=== PATIENT | female | born 1955 | race Caucasian/White ===

== ENCOUNTER → 2017-03-31 | Outpatient (CLI) | payer MEDICAID ==
--- NOTE | 2017-04-06 17:07 | WOMENS IMAGING REPORT ---
EXAM DESCRIPTION: BILAT SCREENING MAMMO W/CAD COMPLETED DATE/TIME: 03/31/2017 2:46 pm REASON FOR STUDY: ROUTINE SCREENING; Z12.31 Z12.31 ENCNTR SCREEN MAMMOGRAM FOR MALIGNANT NEOPLASM O F ALEXANDRA COMPARISON: 2014 TECHNIQUE: Standard craniocaudal and mediolateral oblique views of each breast recorded using digita l acquisition. LIMITATIONS: None. FINDINGS: Findings present which are benign by mammographic criteria. No suspicious masses, calcifi cations or architectural distortion. Pertinent benign findings: Stable calcifications left breast. Stable nodule deep central right breas t. Read with the assistance of CAD. .[facility] - R2 Cenova Version 1.3 .[facility] - R2 Cenova Version 1.3 .[facility] - R2 Cenova Version 2.4 .[facility] [place] - R2 Cenova Version 2.4 .[facility] - R2 Integrated Program Teacher Version 9.2 Benign mammographic findings may include one or more of the following: Smooth masses, popcorn/rim/co arse calcifications, asymmetries, post-procedure changes, and lesions with long-standing stability. IMPRESSION: BENIGN MAMMOGRAPHIC FINDINGS. BIRADS 2 BREAST DENSITY: b. There are scattered areas of fibroglandular density. BIRAD: 2 BENIGN FINDING(S) RECOMMENDATION: ROUTINE SCREENING Please consider bilateral screening tomosynthesis in March 2018 COMMENT: The patient has been notified of the results by letter per SA requirements. Additional no tification policies are in place for contacting patient with suspicious or incomplete findings. Quality ID #[id number]: The [employer] recommends an annual screening mammogram for women aged 40 years or over. This facility utilizes a reminder system to ensure that all patients receive reminder letters, and/or direct phone calls for appointments. This includes reminders for routine scr eening mammograms, diagnostic mammograms, or other Breast Imaging Interventions when appropriate. Th is patient will be placed in the appropriate reminder system. The [employer] ([employer]) has developed recommendations for screening MRI of the breast s in certain patient populations, to be used in conjunction with mammography. Breast MRI surveillanc e may be appropriate for women with more than 20% lifetime risk of developing breast cancer as deter mined by genetic testing, significant family history of the disease, or history of mantle radiation f or Hodgkins Disease. [employer]CR Practice Guidelines 2008. TECHNICAL DOCUMENTATION: FINDING NUMBER: (1) ASSESSMENT: (1) JOB ID: [id number] [employer]- All Rights Reserved
== END ==
LOC: WI 14:09
PROVIDERS: ATTEND Nurse Practitioner Family
DX: Z12.31 Encounter for screening mammogram for malignant neoplasm of breast (principal)
CPT/HCPCS: 77067; G0202

== ENCOUNTER 2017-10-29 22:33 | Observation (INO) | payer MEDICAID ==
--- NOTE | 2017-10-29 23:22 | ER Document Report ---
ED General - General Chief Complaint: Chest Pain Stated Complaint: CHEST PAIN Time Seen by Provider: 10/29/17 23:22 Notes: Patient is a 62-year-old female who presents with complaint of substernal chest pain and some difficulty breathing. It has been ongoing since earlier today. She says she was hoping it would go away but never went away and therefore she is come to the ER. She does not have any radiation of the pain. She denies history of coronary disease. She said that she was told she had a small mild heart attack 5 years ago but then her heart cath was negative. She said her last heart cath was 2 years ago and was also negative. She does have history of COPD. She does still smoke. She has no other complaints at this time. Recent fevers. No leg pain or leg swelling. No history of DVT or PE. TRAVEL OUTSIDE OF THE [place] IN LAST 30 DAYS: No - Related Data Allergies/Adverse Reactions: clarithromycin [From Biaxin] Allergy (Verified 08/24/15 22:29) cyclobenzaprine HCl [From Flexeril] Allergy (Verified 08/24/15 22:29) phenytoin sodium [From Dilantin] Allergy (Verified 08/24/15 22:29) levofloxacin [From Levaquin] Adverse Reaction (Verified 09/13/15 17:56) propoxyphene [From Darvocet-N] Adverse Reaction (Verified 05/17/16 13:09) Past Medical History - Social History Smoking Status: Current Every Day Smoker Frequency of alcohol use: None Drug Abuse: None Family History: Reviewed & Not Pertinent - Past Medical History Cardiac Medical History: Reports: Hx Congestive Heart Failure, Hx Hypercholesterolemia, Hx Hypertension Pulmonary Medical History: Reports: Hx COPD Musculoskeltal Medical History: Reports Hx Arthritis - RA Past Surgical History: Reports: Other - Remote cerebral hemangioma - Immunizations Hx Diphtheria, Pertussis, Tetanus Vaccination: Yes Review of Systems - Review of Systems Notes: My Normal Review Basic REVIEW OF SYSTEMS: CONSTITUTIONAL : Denies fever, chills, or sweats. Denies recent illness. EENT: Denies eye, ear, throat, or mouth pain or symptoms. Denies nasal or sinus congestion. CARDIOVASCULAR: Has chest pain. RESPIRATORY: Difficulty breathing GASTROINTESTINAL: Denies abdominal pain. Denies nausea, vomiting, or diarrhea. GENITOURINARY: Denies difficulty urinating, painful urination, MUSCULOSKELETAL: Denies neck or back pain or joint pain or swelling. SKIN: Denies rash or skin lesions. NEUROLOGICAL: Denies altered mental status or loss of consciousness. Denies headache. Denies weakness or paralysis or loss of use of either side. Denies problems with gait or speech. Denies sensory or motor loss. ALL OTHER SYSTEMS REVIEWED AND NEGATIVE. Physical Exam - Vital signs Vitals: Temp Pulse Resp BP Pulse Ox 98.4 F 116 H 20 217/103 H 90 L 10/29/17 22:55 10/29/17 22:55 10/29/17 22:55 10/29/17 22:55 10/29/17 22:55 - Notes Notes: General Appearance: Well nourished, alert, cooperative, mild acute distress, no obvious discomfort. Patient's O2 saturation 89% while at rest in the room. Vitals: reviewed, See vital signs table. Head: no swelling or tenderness to the head Eyes: PERRL, EOMI, Conjuctiva clear Mouth: No decreasd moisture Neck: Supple, no neck tenderness, No thyromegaly Lungs: No wheezing, diffuse rales, No rhonci, mild accessory muscle use, good air exchange bilaterally. Heart: Tachycardic rate, Regular rythm, No murmur, no rub Abdomen: Normal BS, soft, No rigidity, No abdominal tenderness, No guarding, no rebound, no abdominal masses, no organomegaly Extremities: strength 5/5 in all extremities, good pulses in all extremities, no swelling or tenderness in the extremities, no edema. Skin: warm, dry, appropriate color, no rash Neuro: speech clear, oriented x 3, normal affect, responds appropriately to questions. Course - Re-evaluation Re-evalutation: 10/29/17 23:22 EKG is reviewed and interpreted by me. EKG shows sinus tachycardia with a rate of [address] segment elevation or depression. No ischemic T-wave inversions. WV interval, QRS duration, QTc intervals are within normal range. Old EKG for comparison is from May 17, 2016. 10/30/17 00:49 Patient continues to have some venous rales in the base of the right long and about midway up the left lung. She does not have any wheezing or rhonchi. Her chest pain is resolved with nitro. Her blood pressure is improving after the nitro. She looks and feels improved. She still requiring some supplemental oxygen. When her oxygen comes off she is about 88-89% on room air at rest. Therefore kept on 2 L nasal cannula. Avoid Lasix. Her BNP is negative. Suspect this could be some form of hypertensive urgency or diastolic heart failure. Her initial troponin is negative however this is 100% rule out coronary disease. Because of the above mentioned reasons I feel the patient is appropriate for admission. I do not suspect PE at this time being the patient has no leg pain or leg swelling in her lungs have very consistent rails to help explain why she is having hypoxia. Chest pain is not at all pruritic and was improved with nitro. I spoke with the hospitalist, Dr. Siddiqui, who agrees to admit the patient. Dictation of this chart was performed using voice recognition software; therefore, there may be some unintended grammatical errors. - Vital Signs Vital signs: Temp Pulse Resp BP Pulse Ox 98.4 F 116 H 20 177/100 H 92 10/29/17 22:55 10/29/17 22:55 10/30/17 00:19 10/30/17 00:19 10/30/17 00:19 - Laboratory Result Diagrams: 10/29/17 23:40 10/29/17 23:40 Laboratory results interpreted by me: 10/29/17 10/29/17 23:40 23:40 RDW 17.2 H Creatinine 0.51 L Alkaline Phosphatase 147 H Discharge - Discharge Clinical Impression: Pulmonary vascular congestion, Hypoxemia Chest pain Qualifiers: Chest pain type: unspecified Qualified Code(s): R07.9 - Chest pain, unspecified Condition: Stable Disposition: ADMITTED OBSERVATION Admitting Provider: Hospitalist Unit Admitted: Telemetry
[2017-10-29] MEDS ORDERED: NITROGLYCERIN 2% OINTMENT 1 GM PACKET TP ONE (23:30)
[2017-10-29 23:52] LABS: ABSOLUTE EOSINOPHILS # (AUTO) 0.3 10^3/uL (0.0-0.6); ABSOLUTE LYMPHOCYTES (AUTO) 2.1 10^3/uL (0.5-4.7); ABSOLUTE MONOCYTES (AUTO) 1.2 10^3/uL (0.1-1.4); ABSOLUTE NEUT (AUTO) 6.5 10^3/uL (1.7-8.2); BASOPHILS % (AUTO) 0.4 % (0-2); EOSINOPHILS % (AUTO) 2.9 % (0-6); HEMATOCRIT 38.2 % (36.0-47.0); HEMOGLOBIN 12.4 g/dL (12.0-15.5); LYMPHOCYTES % (AUTO) 20.5 % (13-45); MEAN CORPUSCULAR HEMOGLOBIN 27.7 pg (27.0-33.4); MEAN CORPUSCULAR HGB CONC 32.5 g/dL (32.0-36.0); MEAN CORPUSCULAR VOLUME 85 fl (80-97); MONOCYTES % (AUTO) 11.8 % (3-13); PLATELET COUNT 444 10^3/uL (150-450); RED BLOOD COUNT 4.49 10^6/uL (3.72-5.28); RED CELL DISTRIBUTION WIDTH 17.2 % (11.5-14.0); SEGMENTED NEUTROPHILS % (AUTO) 64.4 % (42-78); TOTAL CELLS COUNTED % (AUTO) 100 %
[2017-10-30 00:11] LABS: ALANINE AMINOTRANSFERASE 31 U/L (9-52); ALKALINE PHOSPHATASE 147 U/L (38-126); ANION GAP 10 (5-19); ASPARTATE AMINO TRANSFERASE 25 U/L (14-36); BILIRUBIN,DIRECT 0.3 mg/dL (0.0-0.4); BILIRUBIN,TOTAL 0.3 mg/dL (0.2-1.3); BLOOD UREA NITROGEN 11 mg/dL (7-20); CALCIUM 9.8 mg/dL (8.4-10.2); CARBON DIOXIDE 30 mmol/L (22-30); CHLORIDE 105 mmol/L (98-107); GLUCOSE 106 mg/dL (75-110); POTASSIUM 4.1 mmol/L (3.6-5.0); SODIUM 144.8 mmol/L (137-145); TOTAL PROTEIN 7.2 g/dL (6.3-8.2)
--- NOTE | 2017-10-30 00:15 | RADIOLOGY REPORT (SQ) ---
EXAM DESCRIPTION: XR CHEST 1 VIEW CLINICAL HISTORY: 62 years Female, dyspnea COMPARISON: 11.29.16 NUMBER OF VIEWS/TECHNIQUE: 1/AP FINDINGS: Adequate lung volume, clear parenchyma, normal cardiac silhouette, atherosclerosis, likely right jugular central line tip at the SVC/brachiocephalic vein junction, And intact bony thorax. IMPRESSION: No acute cardiopulmonary findings.
[2017-10-30 00:22] LABS: NT PRO BNP 69 pg/mL (5-900)
[2017-10-30 00:24] LABS: TROPONIN I < 0.012 ng/mL
[2017-10-30] MEDS ORDERED: FUROSEMIDE INJ/PF 20 MG/2 ML SDV IV ONE (00:44)
[2017-10-30] MEDS ORDERED: ATORVASTATIN CALCIUM 80 MG TABLET PO ONE (01:15)
[2017-10-30] MEDS ORDERED: NITROGLYCERIN 10 MG (0.4 MG/HR) PATCH.TD24 TD ONE (01:15)
[2017-10-30] MEDS ORDERED: LOSARTAN POTASSIUM 50 MG TABLET PO ONE (01:15)
[2017-10-30] MEDS ORDERED: CARVEDILOL 12.5 MG TABLET PO ONE (02:00)
--- NOTE | 2017-10-30 06:21 | PDOC H&P ---
History of Present Illness Admission Date/PCP: 10/30/17 01:02 Patient complains of: Chest pain History of Present Illness: JEWEL STOCKTON is a 62 year old female with history of COPD, rheumatoid arthritis, hypertension, and coronary artery disease. She presents with 6 hours of intermittent 3 out of 5 retrosternal nonradiating chest pain. No nausea vomiting, shortness of breath, palpitations or diaphoresis. He was unable to identify alleviating or exacerbating factors with exception to nitroglycerin received in the emergency room. In the emergency room she is found to have hypertensive urgency with a blood pressure of 220/111. He is currently pain-free and referred to the hospitalist for admission. She denies missing medications, admits to social stressor, adjustment disorder and grief. Past Medical History Cardiac Medical History: Reports: Congestive Heart Failure, Hyperlipidema, Hypertension Pulmonary Medical History: Reports: Chronic Obstructive Pulmonary Disease (COPD) Musculoskeltal Medical History: Reports: Arthritis - RA Past Surgical History Past Surgical History: Reports: Other - Remote cerebral hemangioma Social History Information Source: Patient Smoking Status: Former Smoker Cigarettes Packs Per Day: 0.2 Number of Years Smokin Frequency of Alcohol Use: None Hx Recreational Drug Use: No Drugs: None Hx Prescription Drug Abuse: No - Advance Directive Resuscitation Status: Full Code Family History Family History: CAD, COPD Parental Family History Reviewed: Yes Children Family History Reviewed: Yes Sibling(s) Family History Reviewed.: Yes Medication/Allergy Home Medications: Aspirin [Aspirin 81 mg Chewable Tablet] 81 mg PO DAILY 08/24/15 Atorvastatin Calcium [Lipitor 80 mg Tablet] 80 mg PO QHS 08/24/15 Carvedilol 25 mg PO BID 08/24/15 Clopidogrel Bisulfate [Clopidogrel] 75 mg PO DAILY 08/24/15 Ipratropium/Albuterol Sulfate [Combivent Respimat Inhal [place]] 1 puff IH Q6 PRN 08/24/15 Losartan Potassium [Cozaar] 50 mg PO BID 08/24/15 Methocarbamol 750 mg PO BID 08/24/15 Tiotropium [place] [Spiriva Respimat] 2 puff IH QHS 08/24/15 Tramadol HCl [Tramadol HCl ER] 100 mg PO Q6H PRN 08/24/15 Albuterol Sulfate [Albuterol Sulfate 2.5mg/3 mL] 1 vial IH Q4HP PRN #30 vial 04/03 Loratadine [Claritin] 10 mg PO DAILY 05/17/16 Methotrexate Sodium [Methotrexate] 12.5 mg PO TH 05/17/16 Montelukast Sodium 10 mg PO DAILY 05/17/16 Potassium Chloride 10 meq PO DAILY 05/17/16 Sulindac 200 mg PO BIDP PRN 05/17/16 Tizanidine HCl 4 mg PO QHS PRN 05/17/16 Allergies/Adverse Reactions: clarithromycin [From Biaxin] Allergy (Verified 08/24/15 22:29) cyclobenzaprine HCl [From Flexeril] Allergy (Verified 08/24/15 22:29) phenytoin sodium [From Dilantin] Allergy (Verified 08/24/15 22:29) levofloxacin [From Levaquin] Adverse Reaction (Verified 09/13/15 17:56) propoxyphene [From Darvocet-N] Adverse Reaction (Verified 05/17/16 13:09) Review of Systems Constitutional: ABSENT: chills, fever(s), headache(s), weight gain, weight loss Eyes: ABSENT: visual disturbances Ears: ABSENT: hearing changes Cardiovascular: ABSENT: chest pain, dyspnea on exertion, edema, orthropnea, palpitations Respiratory: ABSENT: cough, hemoptysis Gastrointestinal: ABSENT: abdominal pain, constipation, diarrhea, hematemesis, hematochezia, nausea, vomiting Genitourinary: ABSENT: dysuria, hematuria Musculoskeletal: ABSENT: joint swelling Integumentary: ABSENT: rash, wounds Neurological: ABSENT: abnormal gait, abnormal speech, confusion, dizziness, focal weakness, syncope Psychiatric: ABSENT: anxiety, depression, homidical ideation, suicidal ideation Endocrine: ABSENT: cold intolerance, heat intolerance, polydipsia, polyuria Hematologic/Lymphatic: ABSENT: easy bleeding, easy bruising Physical Exam Vital Signs: Temp Pulse Resp BP Pulse Ox 98.5 F 88 16 102/63 94 10/30/17 04:56 10/30/17 05:25 10/30/17 04:56 10/30/17 04:56 10/30/17 04:56 Intake & Output 10/28/17 10/29/17 10/30/17 11:59 11:59 11:59 Weight 50.3 kg General appearance: PRESENT: no acute distress, well-developed, well-nourished Head exam: PRESENT: atraumatic, normocephalic Eye exam: PRESENT: conjunctiva pink, EOMI, PERRLA. ABSENT: scleral icterus Ear exam: PRESENT: normal external ear exam Mouth exam: PRESENT: moist, tongue midline Neck exam: ABSENT: carotid bruit, JVD, lymphadenopathy, thyromegaly Respiratory exam: PRESENT: clear to auscultation jessy. ABSENT: rales, rhonchi, wheezes Cardiovascular exam: PRESENT: RRR. ABSENT: diastolic murmur, rubs, systolic murmur Pulses: PRESENT: normal dorsalis pedis pul Vascular exam: PRESENT: normal capillary refill GI/Abdominal exam: PRESENT: normal bowel sounds, soft. ABSENT: distended, guarding, mass, organolmegaly, rebound, tenderness Rectal exam: PRESENT: deferred Extremities exam: PRESENT: full ROM. ABSENT: calf tenderness, clubbing, pedal edema Neurological exam: PRESENT: alert, awake, oriented to person, oriented to place , oriented to time, oriented to situation, CN II-XII grossly intact. ABSENT: motor sensory deficit Psychiatric exam: PRESENT: appropriate affect, normal mood. ABSENT: homicidal ideation, suicidal ideation Skin exam: PRESENT: dry, intact, warm. ABSENT: cyanosis, rash Results Impressions: Chest X-Ray 10/29/17 23:29 IMPRESSION: No acute cardiopulmonary findings. Assessment & Plan - Diagnosis (1) Chest pain Qualifiers: Chest pain type: unspecified Qualified Code(s): R07.9 - Chest pain, unspecified Is this a current diagnosis for this admission?: Yes Plan: History of coronary artery disease will observe and evaluation of acute coronary syndrome versus coronary artery disease with anginal equivalents. Cardiac monitoring blood pressure Q6 hours ,TSH, lipid profile, serial cardiac enzymes and cardiac stress test (2) Hypertensive urgency Is this a current diagnosis for this admission?: Yes Plan: Home regiment with as needed nitroglycerin (3) Adjustment disorder Is this a current diagnosis for this admission?: Yes Plan: Possibly secondary to grief, follow-up TSH, trial trazodone as needed - Time Time Spent: 30 to 50 Minutes
[2017-10-30 07:33] LABS: CHOLESTEROL 151.75 mg/dL (0-200); TRIGLYCERIDES 101 mg/dL (<150)
[2017-10-30 07:44] LABS: DIRECT LDL 65 mg/dL (<100)
[2017-10-30 07:45] LABS: CREATINE KINASE MB 0.44 ng/mL (<4.55)
[2017-10-30 07:47] LABS: TROPONIN I < 0.012 ng/mL
[2017-10-30] MEDS ORDERED: IPRATROPIUM/ALBUTEROL 120 PUFF/4 GM MDI IH PRN (10:05)
[2017-10-30] MEDS ORDERED: HYDRALAZINE HCL INJ/PF 20 MG/1 ML SDV IV PRN (11:27)
--- NOTE | 2017-10-30 11:35 | PDOC PROGRESS REPORT ---
Subjective Progress Note for:: 10/30/17 Subjective:: The patient is a 62-year-old female with a history of COPD, rheumatoid arthritis , hypertension, and coronary artery disease who was admitted 10/30/17 for hypertensive urgency and chest pain. She is seen on morning rounds. She is found resting in bed comfortably on room air. She states that she did have another episode of substernal chest pain rated 2/5 that resolved spontaneously after 2-3 minutes. She did not report the event to nursing staff. She denies it being associated with shortness of breath, diaphoresis, nausea. Episode occurred while at rest. At present, she is comfortable in her only complaint is her chronic back pain. She has no other questions or concerns at this time. Reason For Visit: CP HTN URGENCY Physical Exam Vital Signs: Temp Pulse Resp BP Pulse Ox 97.7 F 92 17 112/51 L 93 10/30/17 07:22 10/30/17 07:22 10/30/17 07:22 10/30/17 07:22 10/30/17 07:22 Intake & Output 10/29/17 10/30/17 10/31/17 06:59 06:59 06:59 Weight 50.3 kg General appearance: PRESENT: no acute distress, cooperative, thin, well- developed, well-nourished Head exam: PRESENT: atraumatic, normocephalic Eye exam: PRESENT: conjunctiva pink, EOMI, PERRLA. ABSENT: scleral icterus Ear exam: PRESENT: normal external ear exam Mouth exam: PRESENT: moist, tongue midline Neck exam: ABSENT: carotid bruit, JVD, lymphadenopathy, thyromegaly Respiratory exam: PRESENT: clear to auscultation jessy, prolonged expiratory phas , symmetrical, unlabored. ABSENT: rales, rhonchi, wheezes Cardiovascular exam: PRESENT: RRR, +S1, +S2. ABSENT: diastolic murmur, rubs, systolic murmur Pulses: PRESENT: normal dorsalis pedis pul Vascular exam: PRESENT: normal capillary refill GI/Abdominal exam: PRESENT: normal bowel sounds, soft. ABSENT: distended, guarding, mass, organolmegaly, rebound, tenderness Rectal exam: PRESENT: deferred Extremities exam: PRESENT: full ROM. ABSENT: calf tenderness, clubbing, pedal edema Neurological exam: PRESENT: alert, awake, oriented to person, oriented to place , oriented to time, oriented to situation, CN II-XII grossly intact. ABSENT: motor sensory deficit Psychiatric exam: PRESENT: appropriate affect, normal mood. ABSENT: homicidal ideation, suicidal ideation Skin exam: PRESENT: dry, intact, warm. ABSENT: cyanosis, rash Results Laboratory Results: 10/30/17 06:00 Triglycerides 101 Cholesterol 151.75 LDL Cholesterol Direct 65 VLDL Cholesterol 20.0 HDL Cholesterol 59 10/30/17 06:00 CK-MB (CK-2) 0.44 Troponin I < 0.012 Impressions: Chest X-Ray 10/29/17 23:29 IMPRESSION: No acute cardiopulmonary findings. Assessment & Plan - Diagnosis (1) Chest pain Qualifiers: Chest pain type: unspecified Qualified Code(s): R07.9 - Chest pain, unspecified Is this a current diagnosis for this admission?: Yes Plan: The patient was admitted for chest pain that resolved following sublingual nitroglycerin in the emergency department. Pain was described as substernal, nonradiating, pressure, and not associated with symptoms of headache, dizziness , shortness of breath, diaphoresis, or nausea. She does have a history of coronary artery disease. EKG demonstrated normal sinus rhythm; no evidence of ST segment elevation or depression. Chest x-ray is negative for acute cardiopulmonary findings. Initial troponin is negative. ProBNP 69 Lipid panel is acceptable. She is admitted to the medical floor on continuous cardiac telemetry. Continue trending troponins. Echocardiogram and Nuclear stress test are pending. Continue daily Aspirin, Plavix, and statin therapy. SL Nitro tabs are available as needed for chest pain. (2) Adjustment disorder Is this a current diagnosis for this admission?: Yes Plan: Likely secondary to grief; patient was recently . Trial of trazodone. Supportive care. (3) Hypertensive urgency Is this a current diagnosis for this admission?: Yes Plan: Blood pressure of 217/103 on admission. Continue the patient's home medication regiment. IV hydralazine as needed for blood pressure control. Monitor for response and adjust home medications as needed. (4) COPD (chronic obstructive pulmonary disease) Is this a current diagnosis for this admission?: Yes Plan: Stable; without exacerbation. Continue home medications: Combivent respimat, Spiriva, and Singulair. (5) Coronary artery disease Is this a current diagnosis for this admission?: Yes Plan: Continue ASA, Plavix, and Statin therapy. (6) Rheumatoid arthritis Is this a current diagnosis for this admission?: Yes Plan: Continue home dose Methotrexate and as needed Tramadol. (7) Tobacco dependence Is this a current diagnosis for this admission?: Yes Plan: Pt endorses smoking 3-4 cigarettes daily. Smoking cessation is encouraged; nicotine replacement therapy is offered. - Time Time Spent with patient: 25-34 minutes Medications reviewed and adjusted accordingly: Yes Anticipated discharge: Home Within: within 24 hours - Following stress test - Plan Summary Plan Summary: The stacey was admitted for chest pain work up; trending troponins and obtaining echocardiogram today. Nuclear stress test scheduled for tomorrow morning. Anticipate discharge to home after.
[2017-10-30] MEDS: CARVEDILOL 12.5 MG TABLET PO SCH ×2 (11:37→17:53)
[2017-10-30] MEDS: DOCUSATE SODIUM 100 MG CAPSULE PO SCH ×2 (11:37→17:48)
[2017-10-30] MEDS: TRAMADOL HCL 50 MG TABLET PO SCH ×3 (11:38→23:45)
[2017-10-30] MEDS: ASPIRIN 81 MG TABLET, ENT COATED PO SCH (11:38)
[2017-10-30] MEDS: LOSARTAN POTASSIUM 50 MG TABLET PO SCH ×2 (11:39→17:49)
[2017-10-30] MEDS: CLOPIDOGREL BISULFATE 75 MG TABLET PO SCH (11:39)
[2017-10-30 12:16] LABS: CREATINE KINASE MB 0.46 ng/mL (<4.55)
[2017-10-30 12:25] LABS: TROPONIN I < 0.012 ng/mL
[2017-10-30 18:17] LABS: CREATINE KINASE MB 0.49 ng/mL (<4.55); TROPONIN I < 0.012 ng/mL
--- NOTE | 2017-10-30 20:09 | XCELERA REPORT ---
[address] [address] Transthoracic Echocardiogram Report Name: JEWEL STOCKTON Age: 62 yrs Gender: Female : 1955 Patient Status: Inpatient Patient Location: [address] [place] [address] Study Date: 10/30/2017 10:42 AM Height: 62 in Weight: 110 lb BSA: 1.5 m2 Procedure: A two-dimensional transthoracic echocardiogram with color flow and Doppler was performed. Study Quality: Fair. Reason For Study: chest pain History: Chest pain. Ordering Physician: FAUSTINO VILLAGOMEZ Performed By: Abner Brasher Interpretation Summary The left ventricle is normal in size. There is normal left ventricular wall thickness. LV EF is > than 70% Left ventricular systolic function is normal. Doppler measurements suggest impaired left ventricular relaxation, which is associated with grade I/IV or mild diastolic dysfunction The left ventricular wall motion is normal. There is no thrombus. The right ventricle is normal in size and function. The right atrium is normal. The left atrial size is normal. The interatrial septum is intact with no evidence for an atrial septal defect. There is no evidence of mitral valve prolapse. There is no vegetation seen on the mitral valve. There is no mitral valve stenosis. There is a trace amount of mitral regurgitation The aortic valve is trileaflet. The aortic valve opens well. There is no aortic valvular vegetation. There is no aortic valve stenosis There is no LVOT obstruction. No aortic regurgitation is present. There is no tricuspid stenosis. There is a trace amount of tricuspid regurgitation Unable to calculate RVSP due to insufficient TR jet. There is no pulmonic valvular stenosis. There is a trace amount of pulmonic regurgitation The aortic root is normal size. There is no pericardial effusion. MMode/2D Measurements & Calculations RVDd: 2.9 cm LVIDd: 4.3 cm FS: 44.5 % Ao root diam: 2.7 cm IVSd: 0.66 cm LVIDs: 2.4 cm EDV(Teich): 82.6 ml LVPWd: 0.75 cm ESV(Teich): 19.8 ml Ao root area: 5.7 cm2 EF(Teich): 76.1 % LA length: 3.1 cm Doppler Measurements & Calculations MV E max rory: MV P1/2t max rory: Ao V2 max: LV V1 max P.3 cm/sec 93.3 cm/sec 160.6 cm/sec 3.8 mmHg MV A max rory: MV P1/2t: 75.0 msec Ao max PG: LV V1 max: 113.5 cm/sec 10.3 mmHg 97.1 cm/sec MV E/A: 0.81 MVA(P1/2t): 2.9 cm2 MV dec slope: 364.1 cm/sec2 PA V2 max: PI end-d rory: 99.2 cm/sec 116.4 cm/sec PA max P.9 mmHg Left Ventricle The left ventricle is normal in size. There is normal left ventricular wall thickness. LV EF is > than 70%. Left ventricular systolic function is normal. Doppler measurements suggest impaired left ventricular relaxation, which is associated with grade I/IV or mild diastolic dysfunction. The left ventricular wall motion is normal. There is no thrombus. There is no ventricular septal defect visualized. Right Ventricle The right ventricle is normal in size and function. Atria The right atrium is normal. The left atrial size is normal. The interatrial septum is intact with no evidence for an atrial septal defect. Mitral Valve There is no evidence of mitral valve prolapse. There is no vegetation seen on the mitral valve. There is no mitral valve stenosis. There is a trace amount of mitral regurgitation. Aortic Valve The aortic valve is trileaflet. The aortic valve opens well. There is no aortic valvular vegetation. There is no aortic valve stenosis. There is no LVOT obstruction. No aortic regurgitation is present. Tricuspid Valve There is no tricuspid stenosis. There is a trace amount of tricuspid regurgitation. Unable to calculate RVSP due to insufficient TR jet. Pulmonic Valve There is no pulmonic valvular stenosis. There is a trace amount of pulmonic regurgitation. Great Vessels The aortic root is normal size. Effusions There is no pericardial effusion. : FAUSTINO VILLAGOMEZ > Delai Lincoln
--- NOTE | 2017-10-30 20:13 | EKG REPORT ---
SEVERITY:- BORDERLINE ECG - SINUS TACHYCARDIA PROBABLE LEFT ATRIAL ABNORMALITY : Confirmed by: Emani Llanes 30-Oct-2017 20:12:06
--- NOTE | 2017-10-30 20:13 | EKG REPORT ---
SEVERITY:- NORMAL ECG - SINUS RHYTHM : Confirmed by: Emani Llanes 30-Oct-2017 20:11:59
[2017-10-30] MEDS ORDERED: ATORVASTATIN CALCIUM 80 MG TABLET PO SCH (22:00)
[2017-10-30] MEDS ORDERED: (PENDING PHARMACY ID) (Tiotropium Bromide [Spiriva Respimat] 2 PUFF) IH SCH (22:00)
[2017-10-30] MEDS ORDERED: TRAZODONE HCL 50 MG TABLET PO SCH (22:00)
[2017-10-30] MEDS ORDERED: TIOTROPIUM BROMIDE DPI 5 CAP/KIT (18 MCG/CAP) IH SCH (22:00)
[2017-10-31] MEDS: TRAMADOL HCL 50 MG TABLET PO SCH ×3 (05:33→18:13)
[2017-10-31 06:43] LABS: CHOLESTEROL 138.07 mg/dL (0-200); CREATINE KINASE 23 U/L (30-135); TRIGLYCERIDES 80 mg/dL (<150)
[2017-10-31 06:54] LABS: DIRECT LDL 62 mg/dL (<100)
[2017-10-31] MEDS ORDERED: MONTELUKAST SODIUM 10 MG TABLET PO SCH (08:00)
[2017-10-31] MEDS ORDERED: MULTIVITAMIN TABLET PO SCH (10:00)
[2017-10-31] MEDS ORDERED: NITROGLYCERIN 10 MG (0.4 MG/HR) PATCH.TD24 TD SCH (10:00)
[2017-10-31] MEDS: CLOPIDOGREL BISULFATE 75 MG TABLET PO SCH (10:16)
[2017-10-31] MEDS: CARVEDILOL 12.5 MG TABLET PO SCH ×2 (10:16→18:14)
[2017-10-31] MEDS: DOCUSATE SODIUM 100 MG CAPSULE PO SCH ×2 (10:16→18:13)
[2017-10-31] MEDS: LOSARTAN POTASSIUM 50 MG TABLET PO SCH ×2 (10:16→18:11)
[2017-10-31] MEDS: ASPIRIN 81 MG TABLET, ENT COATED PO SCH (10:16)
[2017-10-31] MEDS ORDERED: FUROSEMIDE INJ/PF 20 MG/2 ML SDV IV ONE (10:21)
[2017-10-31] MEDS ORDERED: REGADENOSON INJ 0.4 MG/5 ML DISP.SYRIN IV ONE (14:36)
[2017-10-31 15:43] VITALS: BP 115/64
--- NOTE | 2017-10-31 18:53 | DRAGON STRESS TEST REPORT ---
Intravenous Lexiscan Cardiolite stress test using single photon emmision computerized tomography. Date of procedure: 10/31/2080. Ordering Provider: Dr. Michael Siddiqui. Patient' s status:. In the Patient. Indication: Chest pain. Coronary risk factors: Age, hypertension, dyslipidemia , tobacco abuse disorder, and family history of coronary artery disease. Resting EKG: Sinus Rhythm. Within Normal Limits. Stress EKG: No changes of ischemia. The patient had no chest pain or discomfort, and there were no arrhythmias seen. Reason for termination: Protocol. Conclusions: Normal EKG and hemodynamic response to IV Lexiscan. Nuclear data: At rest the patient was given 10.03 millicuries of technetium 99m sestamibi injected intravenously. As per protocol rest non gated SPECT images were obtained. Subsequently the patient was given intravenous Lexiscan at a dose of 0.4 mg in 5 mL intravenously, followed by flush with normal saline. Subsequently the stress dose of 32.7 millicuries of technetium 99m sestamibi was injected intravenously. As per protocol stress gated images were obtained. Nuclear interpretation: Review of images showed that there was a small mild perfusion defect involving a small area of the apical lateral wall in both rest and stress images. This area has normal motion contraction and thickening by gated study. Hence this is soft tissue attenuation artifact. The rest of the segments of the myocardium had normal perfusion at rest, and normal perfusion post stress with IV Lexiscan. All segments of the myocardium had normal motion, contraction, and thickening by gated study. T. I D. ratio was normal at 1.06. Computer read rest, and stress left ventricular ejection fraction were 65 %, and %, respectively. 1. There is no scintigraphic evidence of Lexiscan induced myocardial ischemia. 2. There is no scintigraphic evidence of myocardial infarction/scar. Recommendations: Aggressive risk factor modification, and treating the underlying co- morbidities. MTDD
[2017-11-02] MEDS ORDERED: ERGOCALCIFEROL (VITAMIN D2) 50000 UNIT (1.25 MG) CAPSULE PO SCH (10:00)
[2017-11-02] MEDS ORDERED: METHOTREXATE SODIUM 2.5 MG TABLET PO SCH (10:00)
== END 2017-10-31 18:45 | disposition home or self-care (01) ==
LOC: ER 22:33 → EH 10-30 01:02 → 4N 10-30 04:35
PROVIDERS: ADMIT Internal Medicine; ATTEND Internal Medicine
DX: R07.2 Precordial pain (principal); F43.20 Adjustment disorder, unspecified; Z63.4 Disappearance and death of family member; I16.0 Hypertensive urgency; J44.9 Chronic obstructive pulmonary disease, unspecified; I25.10 Atherosclerotic heart disease of native coronary artery without angina pectoris; M06.9 Rheumatoid arthritis, unspecified; F17.210 Nicotine dependence, cigarettes, uncomplicated; G89.29 Other chronic pain; M54.9 Dorsalgia, unspecified; R00.0 Tachycardia, unspecified; R09.02 Hypoxemia; I11.0 Hypertensive heart disease with heart failure; I50.9 Heart failure, unspecified; Z82.49 Family history of ischemic heart disease and other diseases of the circulatory system; Z79.82 Long term (current) use of aspirin; Z79.02 Long term (current) use of antithrombotics/antiplatelets
CPT/HCPCS: 93005 ×2; 99285; 96374; 36415 ×3; 82553; 82550; 85025; 80053; 84484 ×2; 80061 ×2; 83880; 93306; 93017; 71045; 78452; 93010 ×2; G0378 ×3; A9500; J2785; J3490 ×11; J1940 ×2; Q9969

== ENCOUNTER 2018-02-07 11:51 | Emergency (ER) | payer MEDICAID ==
[2018-02-07] MEDS ORDERED: MORPHINE SULFATE 10 MG/ML INJ IV ONE (13:11)
[2018-02-07] MEDS ORDERED: ONDANSETRON HCL INJ/PF 4 MG/2 ML SDV IV ONE (13:11)
--- NOTE | 2018-02-07 13:12 | ER Document Report ---
ED Medical Screen (RME) - General Chief Complaint: Low Back Pain Stated Complaint: BACK PAIN Time Seen by Provider: 02/07/18 13:02 Mode of Arrival: Ambulatory Information source: Patient Notes: This is a 62-year-old female with a history of hypertension who presents to the emergency room with right lumbar pain and an elevated blood pressure. There is discrepancy between the right and left arm as far as the blood pressure. She denies any shortness of breath. Her abdomen is soft right now. No obvious palpable masses. TRAVEL OUTSIDE OF THE [place] IN LAST 30 DAYS: No - Related Data Allergies/Adverse Reactions: clarithromycin [From Biaxin] Allergy (Verified 02/07/18 11:51) cyclobenzaprine HCl [From Flexeril] Allergy (Verified 02/07/18 11:51) phenytoin sodium [From Dilantin] Allergy (Verified 02/07/18 11:51) levofloxacin [From Levaquin] Adverse Reaction (Verified 02/07/18 11:51) propoxyphene [From Darvocet-N] Adverse Reaction (Verified 02/07/18 11:51) Past Medical History - Social History Chew tobacco use (# tins/day): No Frequency of alcohol use: None Drug Abuse: None - Past Medical History Cardiac Medical History: Reports: Hx Congestive Heart Failure, Hx Hypercholesterolemia, Hx Hypertension Pulmonary Medical History: Reports: Hx COPD Renal/ Medical History: Denies: Hx Peritoneal Dialysis Musculoskeltal Medical History: Reports Hx Arthritis - RA Past Surgical History: Reports: Hx Cardiac Catheterization, Hx Hysterectomy, Hx Neurologic Surgery, Hx Oral Surgery, Hx Tubal Ligation, Other - Remote cerebral hemangioma - Immunizations Hx Diphtheria, Pertussis, Tetanus Vaccination: Yes Physical Exam - Vital signs Vitals: Temp Pulse Resp BP Pulse Ox 98.2 F 124 H 20 172/78 H 96 02/07/18 11:56 02/07/18 11:56 02/07/18 11:56 02/07/18 11:56 02/07/18 11:56 Course - Vital Signs Vital signs: Temp Pulse Resp BP Pulse Ox 98.2 F 124 H 20 172/78 H 96 02/07/18 11:56 02/07/18 11:56 02/07/18 11:56 02/07/18 11:56 02/07/18 11:56
[2018-02-07 13:33] LABS: APPEARANCE,URINE CLEAR; BILIRUBIN,URINE NEGATIVE (NEGATIVE); COLOR,URINE YELLOW; GLUCOSE, URINE 50 mg/dL (NEGATIVE); KETONES,URINE NEGATIVE (NEGATIVE); LEUKOCYTE ESTERASE,URINE MODERATE (NEGATIVE); NITRITE,URINE NEGATIVE (NEGATIVE); PROTEIN,URINE NEGATIVE (NEGATIVE); URINE SPECIFIC GRAVITY 1.008; UROBILINOGEN,URINE NEGATIVE mg/dL (<2.0)
[2018-02-07 13:52] LABS: HEMATOCRIT 43.2 % (36.0-47.0); HEMOGLOBIN 14.3 g/dL (12.0-15.5); MEAN CORPUSCULAR HEMOGLOBIN 28.5 pg (27.0-33.4); MEAN CORPUSCULAR HGB CONC 33.2 g/dL (32.0-36.0); MEAN CORPUSCULAR VOLUME 86 fl (80-97); PLATELET COUNT 484 10^3/uL (150-450); RED BLOOD COUNT 5.03 10^6/uL (3.72-5.28); RED CELL DISTRIBUTION WIDTH 16.4 % (11.5-14.0); WHITE BLOOD COUNT 20.4 10^3/uL (4.0-10.5)
[2018-02-07 14:16] LABS: ALANINE AMINOTRANSFERASE 22 U/L (9-52); ALBUMIN 4.5 g/dL (3.5-5.0); ALKALINE PHOSPHATASE 127 U/L (38-126); ANION GAP 12 (5-19); ASPARTATE AMINO TRANSFERASE 34 U/L (14-36); BILIRUBIN,DIRECT 0.3 mg/dL (0.0-0.4); BILIRUBIN,TOTAL 0.4 mg/dL (0.2-1.3); BLOOD UREA NITROGEN 16 mg/dL (7-20); CARBON DIOXIDE 27 mmol/L (22-30); CHLORIDE 107 mmol/L (98-107); GLUCOSE 72 mg/dL (75-110); POTASSIUM 3.9 mmol/L (3.6-5.0); SODIUM 146.4 mmol/L (137-145); TOTAL PROTEIN 8.2 g/dL (6.3-8.2)
[2018-02-07 14:26] LABS: ABSOLUTE LYMPHOCYTES# (MANUAL) 2.9 10^3/uL (0.5-4.7); ABSOLUTE MONOCYTES # (MANUAL) 3.1 10^3/uL (0.1-1.4); ABSOLUTE NEUTROPHILS# (MANUAL) 14.5 10^3/uL (1.7-8.2); BASOPHILS % (MANUAL) 0 % (0-2); EOSINOPHILS % (MANUAL) 0 % (0-6); LYMPHOCYTES % (MANUAL) 14 % (13-45); MONOCYTES % (MANUAL) 15 % (3-13); SEGMENTED NEUTROPHILS % (MAN) 71 % (42-78); TOTAL CELLS COUNTED 100
[2018-02-07 14:27] LABS: ANISOCYTOSIS SLIGHT; HYPOCHROMASIA SLIGHT; PLATELET COMMENT ADEQUATE; POLYCHROMASIA SLIGHT; TOXIC GRANULATION 1+
[2018-02-07] MEDS ORDERED: DIAZEPAM INJ 10 MG/2 ML DISP.SYRIN IV ONE (14:53)
[2018-02-07] MEDS ORDERED: CEFTRIAXONE 1 GM/D5W RTU 1 GM/50 ML RTUPB IV ONE (14:58)
--- NOTE | 2018-02-07 15:00 | ER Document Report ---
ED General - General Chief Complaint: Low Back Pain Stated Complaint: BACK PAIN Time Seen by Provider: 02/07/18 13:02 Mode of Arrival: Ambulatory Information source: Patient, [facility] Records Notes: 62-year-old female with condition of heart failure, hypertension, hyperlipidemia , COPD, rheumatoid arthritis, chronic back pain presents with complaint of low back pain and concern for elevated blood pressure. Patient has a history of chronic low back pain and previous lumbar fusion in 2006. She was in pain management but is currently only working with her doctor Dr. Joiner for pain control. Patient states that her low back pain flared up 5 days prior to arrival while at rest. She denies any recent injury, overuse. She describes it as a throbbing burning pain located in the right paraspinal musculature of the lumbar spine with radiation down to her right buttock. Patient has been taking tramadol without relief. Patient saw her primary care physician Dr. Joiner yesterday who is aware of patient's recent elevated blood pressure and gave her "too small orange pills to bring my blood pressure down". The patient does not know the name of these medication she was given. She states that she was just given it at the office one time. She is on carvedilol 25 mg twice daily and has been compliant with her medication. Patient denies any headache, visual changes, nausea, vomiting, chest pain. Her shortness of breath is chronic and unchanged. Patient denies dysuria but admits to hematuria that was found in the office yesterday. Patient denies fever, history of IV drug use, saddle anesthesia, urinary retention, fecal incontinence, leg weakness. TRAVEL OUTSIDE OF THE [place] IN LAST 30 DAYS: No - HPI Onset: Other Onset/Duration: Sudden, Persistent, Worse Quality of pain: Achy, Throbbing Severity: Moderate Associated symptoms: Shortness of breath - Chronic. denies: Chest pain, Fever, Nausea, Vomiting Exacerbated by: Movement, Walking Relieved by: Denies Similar symptoms previously: Yes Recently seen / treated by doctor: Yes - Yesterday Dr. Joiner - Related Data Allergies/Adverse Reactions: clarithromycin [From Biaxin] Allergy (Verified 02/07/18 11:51) cyclobenzaprine HCl [From Flexeril] Allergy (Verified 02/07/18 11:51) phenytoin sodium [From Dilantin] Allergy (Verified 02/07/18 11:51) levofloxacin [From Levaquin] Adverse Reaction (Verified 02/07/18 11:51) propoxyphene [From Darvocet-N] Adverse Reaction (Verified 02/07/18 11:51) Past Medical History - General Information source: Patient - Social History Smoking Status: Current Every Day Smoker Cigarette use (# per day): Yes - 5 Chew tobacco use (# tins/day): No Smoking Education Provided: Yes - 4 minutes of smoking cessation provided Frequency of alcohol use: None Drug Abuse: None Lives with: Family Family History: CAD, COPD Patient has suicidal ideation: No Patient has homicidal ideation: No - Past Medical History Cardiac Medical History: Reports: Hx Congestive Heart Failure, Hx Hypercholesterolemia, Hx Hypertension Pulmonary Medical History: Reports: Hx COPD Renal/ Medical History: Denies: Hx Peritoneal Dialysis Musculoskeletal Medical History: Reports Hx Arthritis - RA Past Surgical History: Reports: Hx Cardiac Catheterization, Hx Hysterectomy, Hx Neurologic Surgery, Hx Oral Surgery, Hx Tubal Ligation, Other - Remote cerebral hemangioma - Immunizations Hx Diphtheria, Pertussis, Tetanus Vaccination: Yes Hx Pneumococcal Vaccination: 06/19/15 Review of Systems - Review of Systems Notes: REVIEW OF SYSTEMS: CONSTITUTIONAL : Denies fever, chills, or sweats. Denies recent illness. Denies weight loss, recent hospitalizations. EENT: Denies visual changes, eye pain. Denies nasal or sinus congestion or discharge. Denies sore throat, oral lesions, difficulty swallowing. CARDIOVASCULAR: Denies chest pain. Denies palpitations. Denies lower extremity edema. RESPIRATORY: Denies cough, cold, or chest congestion. Denies s wheezing. GASTROINTESTINAL: Denies abdominal pain or distention. Denies nausea, vomiting , or diarrhea. Denies blood in vomitus, stools, or per rectum. Denies black, tarry stools. Denies constipation. GENITOURINARY: Denies difficulty urinating, painful urination, frequency, vaginal discharge. MUSCULOSKELETAL: Denies neck pain or stiffness. Denies joint pain or swelling. SKIN: Denies rash, lesions or sores. HEMATOLOGIC : Denies easy bruising or bleeding. LYMPHATIC: Denies swollen glands. NEUROLOGICAL: Denies confusion or altered mental status. Denies passing out or loss of consciousness. Denies dizziness or lightheadedness. Denies headache. Denies weakness or paralysis. Denies problems difficulty with ambulation, slurred speech. Denies sensory loss, numbness, or tingling. Denies seizures. PSYCHIATRIC: Denies anxiety or stress. Denies depression, suicidal ideation, or homicidal ideation. Denies visual or auditory hallucinations. Physical Exam - Vital signs Vitals: Temp Pulse Resp BP Pulse Ox 98.2 F 124 H 20 172/78 H 96 02/07/18 11:56 02/07/18 11:56 02/07/18 11:56 02/07/18 11:56 02/07/18 11:56 - Notes Notes: PHYSICAL EXAMINATION: GENERAL: Well-appearing, well-nourished and in no acute distress. HEAD: Atraumatic, normocephalic. EYES: Pupils equal round and reactive to light, extraocular movements intact, conjunctiva are normal. ENT: Nares patent, oropharynx clear without exudates. Moist mucous membranes. NECK: Normal range of motion, supple without lymphadenopathy LUNGS: Breath sounds clear to auscultation bilaterally and equal. No wheezes rales or rhonchi. HEART: Regular rate and rhythm without murmurs ABDOMEN: Soft, nontender, nondistended abdomen. No guarding, no rebound. No masses appreciated. Female : deferred Musculoskeletal: Normal range of motion, no pitting or edema. No cyanosis. Tenderness to palpation along the paraspinal musculature of the lumbar spine on the right. Patient also has point tenderness over the right sciatic notch. Straight leg raise negative bilaterally. 5/5 in dorsi and plantar flexion. NEUROLOGICAL: Cranial nerves grossly intact. Normal speech, normal gait. Normal sensory, motor exams PSYCH: Normal mood, normal affect. SKIN: Warm, Dry, normal turgor, no rashes or lesions noted. Course - Re-evaluation Re-evalutation: Laboratory 02/07/18 02/07/18 02/07/18 12:59 13:26 13:26 WBC 20.4 H RBC 5.03 Hgb 14.3 Hct 43.2 MCV 86 MCH 28.5 MCHC 33.2 RDW 16.4 H Plt Count 484 H Total Counted 100 Seg Neutrophils % Not Reportable Seg Neuts % (Manual) 71 Lymphocytes % Not Reportable Lymphocytes % (Manual) 14 Monocytes % Not Reportable Monocytes % (Manual) 15 H Eosinophils % Not Reportable Eosinophils % (Manual) 0 Basophils % Not Reportable Basophils % (Manual) 0 Absolute Neutrophils Not Reportable Abs Neuts (Manual) 14.5 H Absolute Lymphocytes Not Reportable Abs Lymphs (Manual) 2.9 Absolute Monocytes Not Reportable Abs Monocytes (Manual) 3.1 H Absolute Eosinophils Not Reportable Absolute Eos (Manual) 0.0 Absolute Basophils Not Reportable Abs Basophils (Manual) 0.0 Toxic Granulation 1+ Platelet Comment ADEQUATE Polychromasia SLIGHT Hypochromasia SLIGHT Anisocytosis SLIGHT Sodium 146.4 H Potassium 3.9 Chloride 107 Carbon Dioxide 27 Anion Gap 12 BUN 16 Creatinine 0.47 L Est GFR ( Amer) > 60 Est GFR (Non-Af Amer) > 60 Glucose 72 L Calcium 10.0 Total Bilirubin 0.4 Direct Bilirubin 0.3 Neonat Total Bilirubin Not Reportable Neonat Direct Bilirubin Not Reportable Neonat Indirect Bili Not Reportable AST 34 ALT 22 Alkaline Phosphatase 127 H Total Protein 8.2 Albumin 4.5 Urine Color YELLOW Urine Appearance CLEAR Urine pH 6.0 Ur Specific [place] 1.008 Urine Protein NEGATIVE Urine Glucose (UA) 50 H Urine Ketones NEGATIVE Urine Blood MODERATE H Urine Nitrite NEGATIVE Urine Bilirubin NEGATIVE Urine Urobilinogen NEGATIVE Ur Leukocyte Esterase MODERATE H Urine WBC (Auto) 7 Urine RBC (Auto) 6 Squamous Epi Cells Auto 1 Urine Mucus (Auto) RARE Urine Ascorbic Acid NEGATIVE 62-year-old female with condition of heart failure, hypertension, hyperlipidemia , COPD, rheumatoid arthritis, chronic back pain presents with complaint of low back pain and concern for elevated blood pressure. Patient has a history of chronic low back pain and previous lumbar fusion in 2006. She was in pain management but is currently only working with her doctor Dr. Joiner for pain control. Patient states that her low back pain flared up 5 days prior to arrival while at rest. She denies any recent injury, overuse. She describes it as a throbbing burning pain located in the right paraspinal musculature of the lumbar spine with radiation down to her right buttock. Patient has been taking tramadol without relief. Patient saw her primary care physician Dr. Joiner yesterday who is aware of patient's recent elevated blood pressure and gave her "too small orange pills to bring my blood pressure down". Upon arrival vitals are reviewed, patient is afebrile, not hypoxic but is hypertensive. Exam is significant for tenderness along the right sided paraspinal musculature of the lumbar spine and point tenderness over the sciatic notch. CBC does show a leukocytosis of 20 patient has been on a Medrol Dosepak with several days left to go. Urinalysis consistent with urinary tract infection which I think is contributing to the patient's right-sided pain. CMP unremarkable except for a mildly elevated alk phos. 02/07/18 16:50 Patient received morphine, Zofran, Keflex, Valium, Solu-Medrol. On reevaluation she states her back pain has greatly improved. She is ambulating without difficulty. 02/07/18 17:14 Patient was given her home dose of carvedilol for her elevated blood pressure. Advised to follow-up with her primary care physician again as she did yesterday for possible medication adjustments. No evidence of an organ damage. Patient provided the opportunity to ask questions, and express concerns. Discharge instructions discussed. Patient is agreeable with discharge home. Return indications explained and discussed with the patient who displays understanding. Patient encouraged to return to the emergency department immediately with any concerns. 02/08/18 13:19 - Vital Signs Vital signs: Temp Pulse Resp BP Pulse Ox 97.9 F 92 20 190/81 H 93 02/07/18 17:11 02/07/18 17:11 02/07/18 11:56 02/07/18 17:11 02/07/18 17:11 - Laboratory Result Diagrams: 02/07/18 13:26 02/07/18 13:26 Laboratory results interpreted by me: 02/07/18 02/07/18 02/07/18 12:59 13:26 13:26 WBC 20.4 H RDW 16.4 H Plt Count 484 H Monocytes % (Manual) 15 H Abs Neuts (Manual) 14.5 H Abs Monocytes (Manual) 3.1 H Sodium 146.4 H Creatinine 0.47 L Glucose 72 L Alkaline Phosphatase 127 H Urine Glucose (UA) 50 H Urine Blood MODERATE H Ur Leukocyte Esterase MODERATE H Discharge - Discharge Clinical Impression: Hypertension Qualifiers: Hypertension type: unspecified Qualified Code(s): I10 - Essential (primary) hypertension Leukocytosis Qualifiers: Leukocytosis type: unspecified Qualified Code(s): D72.829 - Elevated white blood cell count, unspecified UTI (urinary tract infection) Qualifiers: Urinary tract infection type: site unspecified Hematuria presence: with hematuria Qualified Code(s): N39.0 - Urinary tract infection, site not specified Low back pain Qualifiers: Chronicity: chronic Back pain laterality: right Sciatica presence: with sciatica Sciatica laterality: sciatica of right side Qualified Code(s): M54.41 - Lumbago with sciatica, right side Condition: Good Disposition: HOME, SELF-CARE Instructions: Low Back Pain ([facility]), Muscle Strain ([facility]), Urinary Tract Infection ([facility]) Prescriptions: Cephalexin Monohydrate [Keflex 500 mg Capsule] 500 mg PO BID 5 Days #14 capsule Hydrocodone/Acetaminophen [[place] 5-325 mg Tablet] 1 tab PO Q6H #12 tablet Forms: Elevated Blood Pressure
[2018-02-07] MEDS ORDERED: CEFTRIAXONE SODIUM 1,000 MG in NORMAL SALINE 50 ML IV ONE (16:00)
[2018-02-07] MEDS ORDERED: CARVEDILOL 12.5 MG TABLET PO ONE (17:14)
[2018-02-07 17:19] VITALS: BP 190/81
== END 2018-02-07 17:18 | disposition home or self-care (01) ==
LOC: ER 11:51
DX: N39.0 Urinary tract infection, site not specified (principal); M54.41 Lumbago with sciatica, right side; D72.829 Elevated white blood cell count, unspecified; I11.0 Hypertensive heart disease with heart failure; I50.9 Heart failure, unspecified; J44.9 Chronic obstructive pulmonary disease, unspecified; F17.210 Nicotine dependence, cigarettes, uncomplicated; Z98.1 Arthrodesis status; Z90.710 Acquired absence of both cervix and uterus
CPT/HCPCS: 99406; 99283; 96375; 96365; 36415; 85025; 80053; 81001; J3360; J2270; J0696; J2405

== ENCOUNTER 2018-02-15 16:25 | Emergency (ER) | payer MEDICAID ==
[2018-02-15] MEDS ORDERED: OXYCODONE-ACETAMINOPHEN 5-325 MG TABLET PO ONE (17:02)
[2018-02-15 18:35] LABS: APPEARANCE,URINE CLEAR; BILIRUBIN,URINE NEGATIVE (NEGATIVE); COLOR,URINE YELLOW; GLUCOSE, URINE NEGATIVE (NEGATIVE); KETONES,URINE NEGATIVE (NEGATIVE); LEUKOCYTE ESTERASE,URINE MODERATE (NEGATIVE); NITRITE,URINE NEGATIVE (NEGATIVE); PROTEIN,URINE NEGATIVE (NEGATIVE); UROBILINOGEN,URINE NEGATIVE mg/dL (<2.0)
[2018-02-15 18:53] LABS: URINE AMPHETAMINES SCREEN NEGATIVE; URINE BARBITURATES SCREEN NEGATIVE; URINE BENZODIAZEPINES SCREEN NEGATIVE; URINE COCAINE SCREEN NEGATIVE; URINE MARIJUANA (THC) SCREEN NEGATIVE; URINE METHADONE SCREEN NEGATIVE; URINE PHENCYCLIDINE SCREEN NEGATIVE
--- NOTE | 2018-02-15 19:41 | ER Document Report ---
ED General Pain - General Chief Complaint: Low Back Pain Stated Complaint: LOW BACK PAIN Time Seen by Provider: 02/15/18 16:36 Notes: Chief complaint: Back pain History of complain:( obtained from----patient) 62 years old female presents today with lower back pain over the right side radiating down the leg on and off. Had some difficulty in walking, no weakness over the lower extremity. She has a chronic history of low back pain and rheumatoid arthritis. Denies any dysuria frequency urgency. Denies any abdominal pain nausea vomiting. Onset: Gradual Duration: Last few days Severity: Moderate to severe Quality: Sharp Context: History of low back pain Exacerbating factor and relieving factors: Change of position and walking REVIEW OF SYSTEMS: CONSTITUTIONAL : Denies fever, chills, or sweats. Denies recent illness. EENT: Denies eye, ear, throat, or mouth pain or symptoms. Denies nasal or sinus congestion or discharge. Denies throat, tongue, or mouth swelling or difficulty swallowing. CARDIOVASCULAR: Denies chest pain. Denies palpitations or racing or irregular heart beat. Denies ankle edema. RESPIRATORY: Denies cough, cold, or chest congestion. Denies shortness of breath, difficulty breathing, or wheezing. GASTROINTESTINAL: Denies distention. Denies nausea, vomiting, or diarrhea. Denies blood in vomitus, stools, or per rectum. Denies black, tarry stools. Denies constipation. GENITOURINARY: Denies difficulty urinating, painful urination, burning, frequency, blood in urine, or discharge. FEMALE GENITOURINARY: Denies vaginal bleeding, heavy or abnormal periods, irregular periods. Denies vaginal discharge or odor. MUSCULOSKELETAL: Denies back or neck pain or stiffness. Denies joint pain or swelling. SKIN: Denies rash, lesions or sores. HEMATOLOGIC : Denies easy bruising or bleeding. LYMPHATIC: Denies swollen, enlarged glands. NEUROLOGICAL: Denies confusion or altered mental status. Denies passing out or loss of consciousness. Denies dizziness or lightheadedness. Denies headache. Denies weakness or paralysis or loss of use of either side. Denies problems with gait or speech. Denies sensory loss, numbness, or tingling. Denies seizures. PSYCHIATRIC: Denies anxiety or stress. Denies depression, suicidal ideation, or homicidal ideation. ALL OTHER SYSTEMS REVIEWED AND NEGATIVE. PHYSICAL EXAMINATION: GENERAL: Well-appearing, well-nourished and in mild to moderate acute distress. HEAD: Atraumatic, normocephalic. EYES: Pupils equal round and reactive to light, extraocular movements intact, conjunctiva are normal. ENT: Nares patent, oropharynx clear without exudates. Moist mucous membranes. NECK: Normal range of motion, supple without lymphadenopathy LUNGS: Breath sounds clear to auscultation bilaterally and equal. No wheezes rales or rhonchi. HEART: Regular rate and rhythm without murmurs ABDOMEN: Soft, nontender, nondistended abdomen. No guarding, no rebound. No masses appreciated. Examination of genitals-deferred Musculoskeletal: Right lower back over the sacroiliac joint region sharp tenderness noted. Neurovascular function distally was within normal limit. NEUROLOGICAL: Cranial nerves grossly intact. Normal speech, normal gait. Normal sensory, motor exams PSYCH: Normal mood, normal affect. SKIN: Warm, Dry, normal turgor, no rashes or lesions noted. Dictation was performed using [employer] voice recognition software TRAVEL OUTSIDE OF THE [place] IN LAST 30 DAYS: No - HPI Notes: Dictated - Related Data Allergies/Adverse Reactions: clarithromycin [From Biaxin] Allergy (Verified 02/07/18 11:51) cyclobenzaprine HCl [From Flexeril] Allergy (Verified 02/07/18 11:51) phenytoin sodium [From Dilantin] Allergy (Verified 02/07/18 11:51) levofloxacin [From Levaquin] Adverse Reaction (Verified 02/07/18 11:51) propoxyphene [From Darvocet-N] Adverse Reaction (Verified 02/07/18 11:51) Past Medical History - Social History Smoking Status: Current Every Day Smoker Frequency of alcohol use: None Drug Abuse: None Lives with: Family Family History: Reviewed & Not Pertinent, CAD, COPD Patient has suicidal ideation: No Patient has homicidal ideation: No - Past Medical History Cardiac Medical History: Reports: Hx Congestive Heart Failure, Hx Hypercholesterolemia, Hx Hypertension Pulmonary Medical History: Reports: Hx COPD Renal/ Medical History: Denies: Hx Peritoneal Dialysis Musculoskeletal Medical History: Reports Hx Arthritis - RA Past Surgical History: Reports: Hx Cardiac Catheterization, Hx Hysterectomy, Hx Neurologic Surgery, Hx Oral Surgery, Hx Orthopedic Surgery - hip hardware, Hx Tubal Ligation, Other - Remote cerebral hemangioma - Immunizations Hx Diphtheria, Pertussis, Tetanus Vaccination: Yes Hx Pneumococcal Vaccination: 06/19/15 Review of Systems - Review of Systems Notes: Dictated Physical Exam - Vital signs Vitals: Temp Pulse Resp BP Pulse Ox 98.9 F 124 H 20 150/88 H 93 02/15/18 16:31 02/15/18 16:31 02/15/18 16:31 02/15/18 16:31 02/15/18 16:31 - Notes Notes: Dictated Course - Vital Signs Vital signs: Temp Pulse Resp BP Pulse Ox 98.9 F 124 H 20 150/88 H 93 02/15/18 16:31 02/15/18 16:31 02/15/18 16:31 02/15/18 16:31 02/15/18 16:31 - Laboratory Laboratory results interpreted by me: 02/15/18 18:16 Urine Blood SMALL H Ur Leukocyte Esterase MODERATE H Discharge - Discharge Clinical Impression: Sacroiliitis, Back pain at L4-L5 level Condition: Fair Disposition: HOME, SELF-CARE Instructions: Low Back Pain ([facility]) Prescriptions: Hydrocodone/Acetaminophen [[place] 5-325 mg Tablet] 1 tab PO TID #14 tablet Prednisone 5 mg PO ASDIR PRN 6 Days #1 tab.ds.pk PRN Reason:
[2018-02-15 20:19] VITALS: BP 166/71
--- NOTE | 2018-02-22 10:34 | RADIOLOGY REPORT (SQ) ---
EXAM DESCRIPTION: CHEST 2 VIEWS COMPLETED DATE/TIME: 02/22/2018 9:28 am REASON FOR STUDY: SOB, RALES ON EXAM COMPARISON: 05/17/2016 EXAM PARAMETERS: NUMBER OF VIEWS: two views TECHNIQUE: Digital Frontal and Lateral radiographic views of the chest acquired. RADIATION DOSE: NA LIMITATIONS: none FINDINGS: LUNGS AND PLEURA: Scarring in the left base. Calcified granuloma right apex. No effusion s. MEDIASTINUM AND HILAR STRUCTURES: No masses or contour abnormalities. HEART AND VASCULAR STRUCTURES: Heart normal size. No evidence for failure. BONES: No acute findings. HARDWARE: None in the chest. OTHER: No other significant finding. IMPRESSION: NO ACUTE RADIOGRAPHIC FINDING IN THE CHEST. TECHNICAL DOCUMENTATION: JOB ID: [id number] [employer]- All Rights Reserved Reading location - IP/workstation name: [email or web address]
== END 2018-02-15 20:12 | disposition home or self-care (01) ==
LOC: ER 16:25
DX: M46.1 Sacroiliitis, not elsewhere classified (principal); M54.5 Low back pain; R26.2 Difficulty in walking, not elsewhere classified; F17.200 Nicotine dependence, unspecified, uncomplicated; J44.9 Chronic obstructive pulmonary disease, unspecified; Z88.1 Allergy status to other antibiotic agents; Z88.8 Allergy status to other drugs, medicaments and biological substances
CPT/HCPCS: 80307; 81001; 99283

== ENCOUNTER 2018-02-22 04:19 | Emergency (ER) | payer MEDICAID ==
[2018-02-22] MEDS ORDERED: KETOROLAC TROMETHAMINE INJ/PF 30 MG/1 ML SDV ONE (09:38)
[2018-02-22] MEDS ORDERED: METHYLPREDNISOLONE INJ 125 MG/2 ML SDV ONE (09:41)
[2018-02-22] MEDS ORDERED: ALBUTEROL SULFATE 0.083% NEB 2.5 MG/3 ML AMPUL NEB ONE (09:41)
[2018-02-22 10:11] LABS: ABSOLUTE EOSINOPHILS # (AUTO) 0.4 10^3/uL (0.0-0.6); ABSOLUTE MONOCYTES (AUTO) 0.7 10^3/uL (0.1-1.4); ABSOLUTE NEUT (AUTO) 4.5 10^3/uL (1.7-8.2); BASOPHILS % (AUTO) 0.5 % (0-2); EOSINOPHILS % (AUTO) 5.3 % (0-6); HEMATOCRIT 36.9 % (36.0-47.0); HEMOGLOBIN 12.2 g/dL (12.0-15.5); LYMPHOCYTES % (AUTO) 26.5 % (13-45); MEAN CORPUSCULAR HEMOGLOBIN 28.7 pg (27.0-33.4); MEAN CORPUSCULAR VOLUME 87 fl (80-97); MONOCYTES % (AUTO) 8.9 % (3-13); PLATELET COUNT 356 10^3/uL (150-450); RED BLOOD COUNT 4.23 10^6/uL (3.72-5.28); RED CELL DISTRIBUTION WIDTH 16.3 % (11.5-14.0); SEGMENTED NEUTROPHILS % (AUTO) 58.8 % (42-78); TOTAL CELLS COUNTED % (AUTO) 100 %; WHITE BLOOD COUNT 7.7 10^3/uL (4.0-10.5)
[2018-02-22 10:20] LABS: ALANINE AMINOTRANSFERASE 39 U/L (9-52); ALBUMIN 3.7 g/dL (3.5-5.0); ALKALINE PHOSPHATASE 83 U/L (38-126); ANION GAP 6 (5-19); ASPARTATE AMINO TRANSFERASE 22 U/L (14-36); BILIRUBIN,DIRECT 0.3 mg/dL (0.0-0.4); BILIRUBIN,TOTAL 0.5 mg/dL (0.2-1.3); BLOOD UREA NITROGEN 14 mg/dL (7-20); CALCIUM 9.6 mg/dL (8.4-10.2); CARBON DIOXIDE 26 mmol/L (22-30); CHLORIDE 110 mmol/L (98-107); GLUCOSE 163 mg/dL (75-110); POTASSIUM 4.1 mmol/L (3.6-5.0); SODIUM 142.4 mmol/L (137-145); TOTAL PROTEIN 6.6 g/dL (6.3-8.2)
[2018-02-22 10:21] LABS: NT PRO BNP 161 pg/mL (5-900); TROPONIN I < 0.012 ng/mL
[2018-02-22] MEDS ORDERED: FENTANYL CITRATE INJ/PF 100 MCG/2 ML AMPUL IV ONE (10:27)
--- NOTE | 2018-02-22 10:28 | ER Document Report ---
Doctor's Note Notes: 02/22/18 10:26 Room 16: This is a 62-year-old female to the emergency department for evaluation of shortness of breath and tightness in her chest. Patient has a history of COPD. Recently was on steroids but uncertain whether she was on antibiotics or not. Does have a history of rheumatoid arthritis and states that her back is flaring up with radiculopathy going down her right leg. Patient has had back surgery in the past. Has had several neurosurgical procedures including a shot 2 years ago for a tumor on her brain. Also complaining of fullness in the epigastric region at times. Past medical history: Rheumatoid arthritis, COPD, brain tumor Past surgical history: Neck and back surgery, brain surgery Family history: Reviewed and unremarkable Social history: Remarkable for tobacco abuse. Denies alcohol or drug abuse Review of systems: Constitutional: denies: Chills, Diaphoresis, Fever, Malaise, Weakness EENT: denies: Eye discharge, Blurred vision, Tearing, Double vision, Nose congestion, Nose discharge, Throat swelling, Mouth pain Cardiovascular: denies: Complaining of tightness in the chest, chest pain, shortness of breath, dyspnea on exertion Respiratory: Complaining of shortness of breath, cough, dyspnea on exertion Gastrointestinal: denies: Abdominal pain, Diarrhea, Nausea, Vomiting, Black stools, bright red blood in stool Genitourinary: denies: Burning, Dysuria, Discharge, Frequency, Flank pain, Hematuria Musculoskeletal: Free of of rheumatoid arthritis with joint pain. Complaining of back pain with radiculopathy down the right leg. Hematologic/Lymphatic: denies: Anemia, Easy bleeding, Easy bruising, Blood clots Neurological/Psychological: denies: Confusion, Dementia, Depression, Loss of consciousness Skin: No lesions, no masses, no skin breakdown, no abscesses Physical exam: General: Alert no acute distress HEENT: Atraumatic, normocephalic, pupils equal round react to light and accommodation, extraocular muscles are intact, nose is non tender, posterior pharynx is without erythema or exudate. Tongue is unremarkable Heart: Heart with regular rate and rhythm, no murmurs, no rubs, no clicks Lungs: There are rales bilaterally from the lower lobe to the upper lobes. Faint wheeze. Abdomen: Abdomen is soft, nontender, nondistended, normal bowel sounds Neuro: cranial nerves II through XII intact, reflexes intact, sensation intact, Extremities:Moving all extremities. Equal strength bilaterally in the upper lower extremities. No significant deformity Musculoskeletal: Scars are noted in the upper thoracic and cervical spine as well as the lumbar spine. Mild tenderness to palpation in the right paraspinal muscles on the lumbar spine area. Skin: No lesions. Skin intact Psych: Normal insight. Normal judgment Discharge - Discharge Clinical Impression: COPD exacerbation Condition: Good Disposition: HOME, SELF-CARE Instructions: Chronic Obstructive Lung Disease ([facility]) Additional Instructions: In the event that you are having worsening symptoms please return immediately for repeat evaluation and treatment. Please follow-up with your regular doctors. Prescriptions: Amoxicillin Trihydrate [Amoxil 500 mg Capsule] 500 mg PO TID 7 Days #21 capsule Methylprednisolone [Medrol Dosepack (4 mg/Tab) 21 Tab/Dosepak] 21 tab PO DAILY 7 Days #1 dspk Course - Re-evaluation Re-evalutation: 02/22/18 10:27 Laboratory 02/22/18 02/22/18 02/22/18 05:05 05:05 05:05 WBC 7.7 RBC 4.23 Hgb 12.2 Hct 36.9 MCV 87 MCH 28.7 MCHC 33.0 RDW 16.3 H Plt Count 356 Seg Neutrophils % 58.8 Lymphocytes % 26.5 Monocytes % 8.9 Eosinophils % 5.3 Basophils % 0.5 Absolute Neutrophils 4.5 Absolute Lymphocytes 2.0 Absolute Monocytes 0.7 Absolute Eosinophils 0.4 Absolute Basophils 0.0 Sodium 142.4 Potassium 4.1 Chloride 110 H Carbon Dioxide 26 Anion Gap 6 BUN 14 Creatinine 0.51 L Est GFR ( Amer) > 60 Est GFR (Non-Af Amer) > 60 Glucose 163 H Calcium 9.6 Total Bilirubin 0.5 Direct Bilirubin 0.3 Neonat Total Bilirubin Not Reportable Neonat Direct Bilirubin Not Reportable Neonat Indirect Bili Not Reportable AST 22 ALT 39 Alkaline Phosphatase 83 Troponin I < 0.012 NT-Pro-B Natriuret Pep 161 Total Protein 6.6 Albumin 3.7 02/22/18 11:13 Patient feeling much better at this time. Conference a review of her records reveals that she has had a recent stress test, echocardiogram as well as CT scan. Everything appears unremarkable. Has follow-up appointment on 28 February with a dermatological surgeon. Her back pain is chronic. More likely her shortness of breath represents worsening COPD. At this time we will start her on steroids, antibiotics. Has breathing treatments at home. Will DC at this time in stable condition with instructions to return for any worsening symptoms or concerns. - Laboratory Result Diagrams: 02/22/18 05:05 02/22/18 05:05 Laboratory results interpreted by me: 02/22/18 02/22/18 05:05 05:05 RDW 16.3 H Chloride 110 H Creatinine 0.51 L Glucose 163 H
--- NOTE | 2018-02-22 12:47 | EKG REPORT ---
SEVERITY:- ABNORMAL ECG - SINUS RHYTHM LEFT ATRIAL ABNORMALITY : Confirmed by: Mauri Fairbanks MD 22-Feb-2018 12:47:20
== END 2018-02-22 11:45 | disposition home or self-care (01) ==
LOC: ER 04:19
DX: J44.1 Chronic obstructive pulmonary disease with (acute) exacerbation (principal); R06.02 Shortness of breath; R07.89 Other chest pain; R05 Cough; M54.9 Dorsalgia, unspecified; G89.29 Other chronic pain
CPT/HCPCS: 36415; 80053; 83880; 84484; 85025; 93005; 93010; 99284

== ENCOUNTER 2018-03-31 19:47 | Emergency (ER) | payer MEDICAID ==
[2018-03-31] MEDS ORDERED: ALBUTEROL SULFATE 0.083% NEB 2.5 MG/3 ML AMPUL NEB ONE ×2 (20:06→21:50)
[2018-03-31 20:10] LABS: ABSOLUTE EOSINOPHILS # (AUTO) 0.3 10^3/uL (0.0-0.6); ABSOLUTE LYMPHOCYTES (AUTO) 2.5 10^3/uL (0.5-4.7); ABSOLUTE MONOCYTES (AUTO) 0.7 10^3/uL (0.1-1.4); ABSOLUTE NEUT (AUTO) 3.7 10^3/uL (1.7-8.2); BASOPHILS % (AUTO) 0.7 % (0-2); EOSINOPHILS % (AUTO) 4.6 % (0-6); HEMATOCRIT 40.2 % (36.0-47.0); HEMOGLOBIN 13.4 g/dL (12.0-15.5); LYMPHOCYTES % (AUTO) 34.2 % (13-45); MEAN CORPUSCULAR HEMOGLOBIN 29.8 pg (27.0-33.4); MEAN CORPUSCULAR HGB CONC 33.4 g/dL (32.0-36.0); MEAN CORPUSCULAR VOLUME 89 fl (80-97); MONOCYTES % (AUTO) 9.3 % (3-13); PLATELET COUNT 452 10^3/uL (150-450); RED BLOOD COUNT 4.49 10^6/uL (3.72-5.28); RED CELL DISTRIBUTION WIDTH 16.8 % (11.5-14.0); SEGMENTED NEUTROPHILS % (AUTO) 51.2 % (42-78); TOTAL CELLS COUNTED % (AUTO) 100 %; WHITE BLOOD COUNT 7.2 10^3/uL (4.0-10.5)
[2018-03-31 20:23] LABS: ALANINE AMINOTRANSFERASE 41 U/L (9-52); ALBUMIN 3.9 g/dL (3.5-5.0); ALKALINE PHOSPHATASE 159 U/L (38-126); ANION GAP 7 (5-19); ASPARTATE AMINO TRANSFERASE 33 U/L (14-36); BILIRUBIN,DIRECT 0.3 mg/dL (0.0-0.4); BILIRUBIN,TOTAL 0.6 mg/dL (0.2-1.3); BLOOD UREA NITROGEN 10 mg/dL (7-20); CALCIUM 10.2 mg/dL (8.4-10.2); CARBON DIOXIDE 33 mmol/L (22-30); CHLORIDE 103 mmol/L (98-107); CREATINE KINASE 32 U/L (30-135); GLUCOSE 101 mg/dL (75-110); POTASSIUM 4.5 mmol/L (3.6-5.0); SODIUM 142.6 mmol/L (137-145); TOTAL PROTEIN 6.8 g/dL (6.3-8.2)
--- NOTE | 2018-03-31 20:30 | RADIOLOGY REPORT (SQ) ---
EXAM DESCRIPTION: CHEST SINGLE VIEW COMPLETED DATE/TIME: 03/31/2018 8:15 pm REASON FOR STUDY: COPD exacerbation COMPARISON: 02/22/2018 TECHNIQUE: Single frontal radiographic view of the chest acquired. NUMBER OF VIEWS: One view. LIMITATIONS: None. FINDINGS: LUNGS AND PLEURA: No pneumothorax. No consolidation or pleural effusion. MEDIASTINUM AND HILAR STRUCTURES: Stable. HEART AND VASCULAR STRUCTURES: Stable. BONES: No acute findings. HARDWARE: None in the chest. OTHER: No other significant finding. IMPRESSION: NO ACUTE FINDINGS. TECHNICAL DOCUMENTATION: JOB ID: [id number] 2010 [employer]- All Rights Reserved Reading location - IP/workstation name: [email or web address]
[2018-03-31 20:34] LABS: CREATINE KINASE MB 0.54 ng/mL (<4.55)
[2018-03-31 20:35] LABS: TROPONIN I < 0.012 ng/mL
--- NOTE | 2018-03-31 21:20 | ER Document Report ---
ED Respiratory Problem - General Mode of Arrival: Ambulatory Information source: Patient TRAVEL OUTSIDE OF THE [place] IN LAST 30 DAYS: No <THEE SEYMOUR - Last Filed: 03/31/18 21:35> <CONNER DARNELL - Last Filed: 03/31/18 22:39> - General Chief Complaint: Shortness Of Breath Stated Complaint: DIFFICULTY BREATHING Time Seen by Provider: 03/31/18 19:52 Notes: Patient is a 62 year old female that presents to the emergency department today with complaints of shortness of breath that began after a cough tonight. Patient states that she did two nebulizer treatments at home prior to leaving to come here with EMS. EMS reports x3 A&A treatments being given in route here which she reports have made her feel quite better. Patient is still smoking. ( THEE SEYMOUR) - Related Data Allergies/Adverse Reactions: acetaminophen [From Darvocet-N] Allergy (Verified 03/31/18 20:15) clarithromycin Allergy (Verified 03/31/18 20:15) cyclobenzaprine [From Flexeril] Allergy (Verified 03/31/18 20:15) levofloxacin [From Levaquin] Allergy (Verified 03/31/18 22:03) naproxen [From Naprosyn] Allergy (Verified 03/31/18 20:14) phenytoin [From Dilantin] Allergy (Verified 03/31/18 20:15) propoxyphene [From Darvocet-N] Allergy (Verified 03/31/18 20:15) Past Medical History - General Information source: Patient - Social History Smoking Status: Current Some Day Smoker Cigarette use (# per day): Yes Frequency of alcohol use: None Drug Abuse: None Lives with: Family Family History: Reviewed & Not Pertinent, CAD, COPD Patient has suicidal ideation: No Patient has homicidal ideation: No - Past Medical History Cardiac Medical History: Reports: Hx Congestive Heart Failure, Hx Hypercholesterolemia, Hx Hypertension Pulmonary Medical History: Reports: Hx COPD Musculoskeletal Medical History: Reports Hx Arthritis - RA Past Surgical History: Reports: Hx Cardiac Catheterization - 2017-normal, Hx Hysterectomy, Hx Neurologic Surgery - 05/26/2016 [employer] shunt for brain mass, Other - Remote cerebral hemangioma, menangiomas - Immunizations Hx Diphtheria, Pertussis, Tetanus Vaccination: Yes Hx Pneumococcal Vaccination: 06/19/15 <THEE SEYMOUR - Last Filed: 03/31/18 21:35> Review of Systems - Review of Systems Constitutional: No symptoms reported EENT: No symptoms reported Cardiovascular: No symptoms reported Respiratory: See HPI, Cough, Short of breath, Wheezing Gastrointestinal: No symptoms reported Genitourinary: No symptoms reported Female Genitourinary: No symptoms reported Musculoskeletal: No symptoms reported Skin: No symptoms reported Hematologic/Lymphatic: No symptoms reported Neurological/Psychological: No symptoms reported -: Yes All other systems reviewed and negative <THEE SEYMOUR - Last Filed: 03/31/18 21:35> Physical Exam - Vital signs Interpretation: Normal - General General appearance: Appears well, Alert - HEENT Head: Normocephalic, Atraumatic Eyes: Normal Pupils: PERRL - Respiratory Respiratory status: Pursed lip breathing - 94% on room air now Breath sounds: Rhonchi, Wheezing - Cardiovascular Rhythm: Regular Heart sounds: Normal auscultation Murmur: No - Abdominal Inspection: Normal Distension: No distension Bowel sounds: Normal Tenderness: Nontender Organomegaly: No organomegaly - Back Back: Normal, Nontender - Extremities General upper extremity: Normal inspection, Nontender. No: Edema General lower extremity: Normal inspection, Nontender. No: Edema - Neurological Neuro grossly intact: Yes Cognition: Normal Orientation: AAOx4 [place] Coma Scale Eye Opening: Spontaneous [place] Coma Scale Verbal: Oriented [place] Coma Scale Motor: Obeys Commands Asuncion Coma Scale Total: 15 Speech: Normal - Psychological Associated symptoms: Normal affect, Normal mood - Skin Skin Temperature: Warm Skin Moisture: Dry Skin Color: Normal <THEE SEYMOUR - Last Filed: 03/31/18 21:35> - Vital signs Vitals: Temp Pulse Resp BP Pulse Ox 98.2 F 99 19 172/91 H 94 03/31/18 19:57 03/31/18 19:57 03/31/18 19:57 03/31/18 19:57 03/31/18 19:57 Course - Laboratory Result Diagrams: 03/31/18 19:08 03/31/18 19:08 <THEE SEYMOUR - Last Filed: 03/31/18 21:35> - Laboratory Result Diagrams: 03/31/18 19:08 03/31/18 19:08 - Diagnostic Test Radiology reviewed: Image reviewed, Reports reviewed - Chest x-ray does not show an acute problem - EKG Interpretation by Me EKG shows normal: Sinus rhythm, [place], Intervals, QRS Complexes, ST-T Waves Rate: Normal - 91 Rhythm: NSR P Waves: LAE When compared to previous EKG there are: No significant change <CONNER DARNELL - Last Filed: 03/31/18 22:39> - Re-evaluation Re-evalutation: 03/31/18 22:33 Patient is feeling much better after the breathing treatments. She states she has plenty of medicine for her nebulizer at home. We will put her on a steroid dosing and doxycycline for her COPD exacerbation. (CONNER DARNELL) - Vital Signs Vital signs: Temp Pulse Resp BP Pulse Ox 98.2 F 99 17 161/82 H 91 L 03/31/18 19:57 03/31/18 19:57 03/31/18 21:30 03/31/18 21:30 03/31/18 21:30 - Laboratory Laboratory results interpreted by me: 03/31/18 03/31/18 19:08 19:08 RDW 16.8 H Plt Count 452 H Carbon Dioxide 33 H Alkaline Phosphatase 159 H Discharge <THEE SEYMOUR - Last Filed: 03/31/18 21:35> <CONNER DARNELL - Last Filed: 03/31/18 22:39> - Discharge Clinical Impression: Acute exacerbation of chronic obstructive pulmonary disease (COPD) Condition: Stable Disposition: HOME, SELF-CARE Additional Instructions: You have an exacerbation of your COPD. We will treat you with steroids, and antibiotics. Continue using your nebulizer every 2-4 hours as needed for shortness of breath and wheezing. Be sure to drink plenty of fluids. Your blood pressure was a little elevated tonight, be sure you do not miss any doses of your blood pressure medications. You should follow-up with your medical doctor this week for recheck if not improving. RETURN TO THE EMERGENCY ROOM IF ANY NEW OR WORSENING SYMPTOMS. Prescriptions: Doxycycline Hyclate 100 mg PO BID #14 tablet Prednisone [Deltasone 10 mg Tablet] 10 mg PO ASDIR PRN #21 tablet PRN Reason: Referrals: NICHO ROQUE PA-C [Primary Care Provider] - Follow up as needed Scribe Attestation: 03/31/18 22:35 I personally performed the services described in the documentation, reviewed and edited the documentation which was dictated to the scribe in my presence, and it accurately records my words and actions. (CONNER DARNELL) Scribe Documentation - Scribe Written by Myrtle:: Myrtle Pereira, 03/31/2018 [id number] acting as scribe for :: Chalino <THEE SEYMOUR - Last Filed: 03/31/18 21:35>
[2018-03-31] MEDS ORDERED: PREDNISONE 20 MG TABLET PO ONE (21:35)
[2018-03-31] MEDS ORDERED: LEVOFLOXACIN 750 MG TABLET PO ONE (21:36)
[2018-03-31] MEDS ORDERED: DOXYCYCLINE HYCLATE 100 MG TABLET PO ONE (22:08)
[2018-03-31 23:09] VITALS: BP 163/88
--- NOTE | 2018-04-01 08:52 | EKG REPORT ---
SEVERITY:- ABNORMAL ECG - SINUS RHYTHM BHAVANI, CONSIDER BIATRIAL ABNORMALITIES : Confirmed by: Delia Lincoln MD 01-Apr-2018 08:51:30
== END 2018-03-31 23:20 | disposition home or self-care (01) ==
LOC: ER 19:47
DX: J44.1 Chronic obstructive pulmonary disease with (acute) exacerbation (principal); F17.210 Nicotine dependence, cigarettes, uncomplicated; I50.9 Heart failure, unspecified; E78.00 Pure hypercholesterolemia, unspecified; I11.0 Hypertensive heart disease with heart failure; Z88.3 Allergy status to other anti-infective agents; Z88.6 Allergy status to analgesic agent; Z90.710 Acquired absence of both cervix and uterus; Z98.2 Presence of cerebrospinal fluid drainage device
CPT/HCPCS: 93005; 94640 ×2; 99285; 36415; 87040; 82553; 82550; 85025; 80053; 84484; 71045; 93010; J3490; J7512

== ENCOUNTER → 2018-04-04 | Outpatient (CLI) | payer MEDICAID ==
--- NOTE | 2018-04-04 13:18 | WOMENS IMAGING REPORT ---
EXAM DESCRIPTION: BILAT SCREENING MAMMO W/CAD COMPLETED DATE/TIME: 04/04/2018 11:42 am REASON FOR STUDY: ROUTINE BILATERAL SCREENING;Z12.31 Z12.31 ENCNTR SCREEN MAMMOGRAM FOR MALIGNANT N EOPLASM OF ALEXANDRA COMPARISON: 2016 TECHNIQUE: Standard craniocaudal and mediolateral oblique views of each breast recorded using [employer] acquisition. LIMITATIONS: None. FINDINGS: No masses, calcifications or architectural distortion. No areas of suspicion. Read with the assistance of CAD. .[facility] - R2 Cenova Version 1.3 .[facility] - R2 Cenova Version 1.[address] .[facility] - R2 Cenova Version 2.4 .[facility] [place] - R2 Cenova Version 2.4 .[facility] - R2 General Intern Version 9.2 IMPRESSION: NORMAL MAMMOGRAM. BIRADS 1. BREAST DENSITY: b. There are scattered areas of fibroglandular density. BIRAD: 1 NEGATIVE RECOMMENDATION: ROUTINE SCREENING COMMENT: The patient has been notified of the results by letter per SA requirements. Additional no tification policies are in place for contacting patient with suspicious or incomplete findings. Quality ID #[id number]: The [employer] recommends an annual screening mammogram for women aged 40 years or over. This facility utilizes a reminder system to ensure that all patients receive reminder letters, and/or direct phone calls for appointments. This includes reminders for routine scr eening mammograms, diagnostic mammograms, or other Breast Imaging Interventions when appropriate. Th is patient will be placed in the appropriate reminder system. The [employer] (ACR) has developed recommendations for screening MRI of the breast s in certain patient populations, to be used in conjunction with mammography. Breast MRI surveillanc e may be appropriate for women with more than 20% lifetime risk of developing breast cancer as deter mined by genetic testing, significant family history of the disease, or history of mantle radiation f or Hodgkins Disease. ACR Practice Guidelines 2008. TECHNICAL DOCUMENTATION: FINDING NUMBER: (1) ASSESSMENT: (1) JOB ID: [id number] [employer]- All Rights Reserved Reading location - IP/workstation name: [email or web address]
== END ==
LOC: WI 11:09
PROVIDERS: ATTEND Physician Assistant Medical
DX: Z12.31 Encounter for screening mammogram for malignant neoplasm of breast (principal)
CPT/HCPCS: 77067

== ENCOUNTER 2018-05-23 17:34 | Emergency (ER) | payer MEDICAID ==
[2018-05-23] MEDS ORDERED: DILTIAZEM HCL 180 MG CAPSULE.CR PO ONE (18:30)
--- NOTE | 2018-05-23 18:35 | ER Document Report ---
ED Blood Pressure Problem - General Chief Complaint: High Blood Pressure Stated Complaint: BLOOD PRESSURE ISSUE Time Seen by Provider: 05/23/18 18:26 Mode of Arrival: Ambulatory Information source: Patient Notes: Chief complaint: Elevated blood pressure History of complain:( obtained from----patient) 63 years old female who is on prednisone 14 mg day 3, for COPD, resents today with elevated blood pressure. Has no headache, dizziness or other focal neurological deficit. Onset: Today gradual Duration: Since today Severity: Mild to moderate Quality: Not applicable Context: Prednisone induced Exacerbating factor and relieving factors: None REVIEW OF SYSTEMS: CONSTITUTIONAL : Denies fever, chills, or sweats. Denies recent illness. EENT: Denies eye, ear, throat, or mouth pain or symptoms. Denies nasal or sinus congestion or discharge. Denies throat, tongue, or mouth swelling or difficulty swallowing. CARDIOVASCULAR: Denies chest pain. Denies palpitations or racing or irregular heart beat. Denies ankle edema. RESPIRATORY: Denies cough, cold, or chest congestion. Denies shortness of breath, difficulty breathing, or wheezing. GASTROINTESTINAL: Denies distention. Denies nausea, vomiting, or diarrhea. Denies blood in vomitus, stools, or per rectum. Denies black, tarry stools. Denies constipation. GENITOURINARY: Denies difficulty urinating, painful urination, burning, frequency, blood in urine, or discharge. FEMALE GENITOURINARY: Denies vaginal bleeding, heavy or abnormal periods, irregular periods. Denies vaginal discharge or odor. MUSCULOSKELETAL: Denies back or neck pain or stiffness. Denies joint pain or swelling. SKIN: Denies rash, lesions or sores. HEMATOLOGIC : Denies easy bruising or bleeding. LYMPHATIC: Denies swollen, enlarged glands. NEUROLOGICAL: Denies confusion or altered mental status. Denies passing out or loss of consciousness. Denies dizziness or lightheadedness. Denies headache. Denies weakness or paralysis or loss of use of either side. Denies problems with gait or speech. Denies sensory loss, numbness, or tingling. Denies seizures. PSYCHIATRIC: Denies anxiety or stress. Denies depression, suicidal ideation, or homicidal ideation. ALL OTHER SYSTEMS REVIEWED AND NEGATIVE. PHYSICAL EXAMINATION: GENERAL: Well-appearing, well-nourished and in no acute distress. HEAD: Atraumatic, normocephalic. EYES: Pupils equal round and reactive to light, extraocular movements intact, conjunctiva are normal. ENT: Nares patent, oropharynx clear without exudates. Moist mucous membranes. NECK: Normal range of motion, supple without lymphadenopathy LUNGS: Breath sounds clear to auscultation bilaterally and equal. No wheezes rales or rhonchi. HEART: Regular rate and rhythm without murmurs ABDOMEN: Soft, nontender, nondistended abdomen. No guarding, no rebound. No masses appreciated. Examination of genitals-deferred Musculoskeletal: Normal range of motion, no pitting or edema. No cyanosis. NEUROLOGICAL: Cranial nerves grossly intact. Normal speech, normal gait. Normal sensory, motor exams PSYCH: Normal mood, normal affect. SKIN: Warm, Dry, normal turgor, no rashes or lesions noted. Dictation was performed using [employer] voice recognition software TRAVEL OUTSIDE OF THE [place] IN LAST 30 DAYS: No - HPI Notes: Dictated - Related Data Allergies/Adverse Reactions: acetaminophen [From Darvocet-N] Allergy (Verified 05/23/18 17:37) clarithromycin Allergy (Verified 05/23/18 17:37) cyclobenzaprine [From Flexeril] Allergy (Verified 05/23/18 17:37) levofloxacin [From Levaquin] Allergy (Verified 05/23/18 17:37) naproxen [From Naprosyn] Allergy (Verified 05/23/18 17:37) phenytoin [From Dilantin] Allergy (Verified 05/23/18 17:37) propoxyphene [From Darvocet-N] Allergy (Verified 05/23/18 17:37) Past Medical History - Social History Smoking Status: Unknown if Ever Smoked Cigarette use (# per day): No Chew tobacco use (# tins/day): No Smoking Education Provided: No Frequency of alcohol use: Rare Drug Abuse: [place] salts Lives with: Family Family History: Reviewed & Not Pertinent, CAD, COPD Patient has suicidal ideation: No Patient has homicidal ideation: No - Past Medical History Cardiac Medical History: Reports: Hx Congestive Heart Failure, Hx Hypercholesterolemia, Hx Hypertension Pulmonary Medical History: Reports: Hx COPD Renal/ Medical History: Denies: Hx Peritoneal Dialysis Musculoskeletal Medical History: Reports Hx Arthritis - RA Past Surgical History: Reports: Hx Cardiac Catheterization - 2017-normal, Hx Hysterectomy, Hx Neurologic Surgery - 05/26/2016 [employer] shunt for brain mass, Hx Oral Surgery, Hx Orthopedic Surgery - hip hardware, Hx Tubal Ligation, Other - Remote cerebral hemangioma, menangiomas - Immunizations Hx Diphtheria, Pertussis, Tetanus Vaccination: Yes Hx Pneumococcal Vaccination: 06/19/15 Review of Systems - Review of Systems Notes: Dictated Physical Exam - Vital signs Vitals: Temp Pulse Resp BP Pulse Ox 98.2 F 102 H 20 172/92 H 96 05/23/18 17:47 05/23/18 17:47 05/23/18 17:47 05/23/18 17:47 05/23/18 17:47 - Notes Notes: Dictated Course - Re-evaluation Re-evalutation: 05/23/18 20:32 Blood pressure improved on Cardizem - Vital Signs Vital signs: Temp Pulse Resp BP Pulse Ox 98.2 F 94 18 187/96 H 94 05/23/18 20:38 05/23/18 20:38 05/23/18 20:38 05/23/18 20:38 05/23/18 20:38 Discharge - Discharge Clinical Impression: Hypertension Qualifiers: Hypertension type: essential hypertension Qualified Code(s): I10 - Essential ( primary) hypertension Condition: Fair Instructions: High Blood Pressure ([facility]) Prescriptions: Clonidine HCl [Catapres] 0.2 mg PO DAILY #30 tablet Diltiazem HCl [Cardizem LA] 240 mg PO DAILY #30 tab.er.24h Referrals: NICHO ROQUE PA-C [Primary Care Provider] - Follow up as needed
[2018-05-23 20:39] VITALS: BP 187/96
[2018-05-23] MEDS ORDERED: CLONIDINE HCL 0.1 MG TABLET PO ONE (20:56)
== END 2018-05-23 21:00 | disposition home or self-care (01) ==
LOC: ER 17:34
DX: I10 Essential (primary) hypertension (principal); J44.9 Chronic obstructive pulmonary disease, unspecified; Z79.52 Long term (current) use of systemic steroids; F19.10 Other psychoactive substance abuse, uncomplicated; Z88.6 Allergy status to analgesic agent; Z88.1 Allergy status to other antibiotic agents; Z88.8 Allergy status to other drugs, medicaments and biological substances; Z88.5 Allergy status to narcotic agent
CPT/HCPCS: 99283; J3490 ×2